=== PATIENT | male | born 1975 | race African-American/Black ===

== ENCOUNTER 2025-04-20 16:36 | Emergency (ER) | payer SELFPAY ==
[~2025-04-20] VITALS: Ht 170.2 cm; Wt 88.0 kg
[2025-04-20] MEDS: IV NS 0.9% 1,000 ML BAG IV ONE ×2 (17:20→18:25)
[2025-04-20] MEDS ORDERED: METOCLOPRAMIDE HCL 10 MG/2 ML VIAL ONE (17:27)
[2025-04-20] MEDS ORDERED: ONDANSETRON HCL/PF 4 MG/2 ML VIAL ONE (17:27)
[2025-04-20] MEDS ORDERED: IOHEXOL-300 100 ML VIAL IV ONE (17:27)
[2025-04-20] MEDS ORDERED: FAMOTIDINE/PF INJ 20 MG/2 ML VIAL IV ONE (17:27)
[2025-04-20] MEDS ORDERED: PANTOPRAZOLE 80 MG in IV NS 0.9% 100 ML IV ONE (17:30)
[2025-04-20] MEDS ORDERED: PANTOPRAZOLE 80 MG in IV NS 0.9% 500 ML IV PRN (17:30)
[2025-04-20 17:32] LABS: PLATELET COUNT (AUTO) 265 K/uL (150-450); RED BLOOD CELL COUNT(AUTO) 5.38 MIL/uL (4.5-6.0); RED CELL DISTRIBUTION WIDTH 14.7 % (11.5-15.0); WHITE BLOOD COUNT (AUTO) 7.8 K/uL (4.3-11.0)
[2025-04-20] MEDS: FAMOTIDINE/PF INJ 20 MG/2 ML VIAL IV ONE (17:32)
[2025-04-20] MEDS: PANTOPRAZOLE 40 MG VIAL IV ONE (17:33)
[2025-04-20] MEDS: METOCLOPRAMIDE HCL 10 MG/2 ML VIAL IV ONE (17:44)
[2025-04-20] MEDS: SUCRALFATE 1 G TABLET PO ONE (17:45)
[2025-04-20 17:50] LABS: CALCIUM, SERUM 9.4 mg/dL (8.5-10.1); CREATININE 1.2 mg/dL (0.6-1.3); SODIUM SERUM 138.0 mmol/L (136-145); UREA NITROGEN, BLOOD 13.0 mg/dL (7-18)
[2025-04-20 17:56] LABS: ASPARTATE AMINOTRANSFERASE 14.0 U/L (15-37); TOTAL PROTEIN, SERUM 7.4 g/dL (6.4-8.2)
[2025-04-20] MEDS: ACETAMINOPHEN ES 500 MG TABLET PO ONE (19:56)
[2025-04-20 20:08] LABS: PLATELET COUNT (AUTO) 259 K/uL (150-450); RED BLOOD CELL COUNT(AUTO) 4.89 MIL/uL (4.5-6.0); RED CELL DISTRIBUTION WIDTH 14.5 % (11.5-15.0); WHITE BLOOD COUNT (AUTO) 9.0 K/uL (4.3-11.0)
[2025-04-20] MEDS ORDERED: AMOX-430 PO (20:12)
[2025-04-20] MEDS ORDERED: FAMO20TA80 PO (20:12)
[2025-04-20] MEDS ORDERED: PANT40TA49 PO (20:12)
[2025-04-20] MEDS ORDERED: KETOROLAC TROMETHAMINE 15 MG/ML VIAL ONE (20:23)
[2025-04-20] MEDS: KETOROLAC TROMETHAMINE 15 MG/ML VIAL IV ONE (20:28)
[2025-04-20 22:13] VITALS: BP 120/80; TEMP 98.7; O2SAT 97
== END 2025-04-20 22:13 | disposition home or self-care (01) ==
LOC: ER 16:42
DX: K52.9 Noninfective gastroenteritis and colitis, unspecified (principal); Z60.2 Problems related to living alone
CPT/HCPCS: 99285; 74177; 96374; 96361; 96375; 93005; 85025 ×2; 80048; 83690; 80076; 36415; J1885; J1308; J2765; J7030 ×3; J2470 ×2; Q9967; J2405